=== PATIENT | female | born 1950 | race Caucasian/White ===

== ENCOUNTER 2025-06-12 13:22 | Inpatient (IN) | payer MEDICARE, OTHER, SELFPAY ==
[2025-06-11] VITALS (15 sets, daily range): BP systolic 116–157; BP diastolic 58–96; BMI 29.0
--- NOTE | 2025-06-11 10:10 | EDRN ---
Patient ready to go to CT for stroke alert and the neurologist at the bedside is requesting time to do his full NIH and assessments.
--- NOTE | 2025-06-11 10:27 | ED.CVA ---
History of Present Illness
General
Chief Complaint: CVA/TIA Symptoms
Source: patient
Exam Limitations: none
Time Seen by Provider: 06/11/25 10:04
Nursing documentation reviewed up to this point in time: agreed with
Onset of Stroke Symptoms
Onset of symptoms known: Yes
Date of onset of symptoms: 06/11/25
Time of onset of symptoms: 09:00
Date last time pt seen normal: 06/10/25
History of Present Illness
History of Present Illness:
Patient with history of hypertension, who went to sleep around midnight last night, presents to ED after waking up this morning at 9 AM with left arm and left leg numbness with weakness. Due to weakness, patient reports having fallen multiple times
at home. Denies headache. Denies difficulty with speech. Denies difficulty with swallowing. Denies dizziness. Denies previous history of similar symptoms. Denies recent illness. Denies recent change in medications or diet. Patient does not
take any blood thinning medications.
Past History
Past History
ED Past Medical History: None
ED Past Surgical History: None
Social History
Tobacco: Non-smoker
Alcohol: Occasional
Drug: None
Personal:
Living: with family
Review of Systems
Review of Systems
Allergies reviewed?: Yes
All Other Systems: ROS reviewed and negative except as documented in HPI and ROS
Constitutional: Reports no symptoms
Respiratory: Reports no symptoms
Cardiac: Reports no symptoms
ABD/GI: Reports no symptoms
Musculoskeletal: Reports no symptoms
Skin: Reports no symptoms
Neurological: Reports weakness and numbness
Phy Exam
Physical Exam
Physical Exam:
Physical Exam
General: no apparent distress, not acutely ill. afebrile
Head: nc/at. eomi
Neck: supple. normal range of motion.
Heart: s1/s2 regular rate and rhythm
Lungs: no acute respiratory distress. clear bilaterally
Abdomen: normal bowel sounds. not tender.
Neuro: alert and oriented x 3. no focal neurological deficits. normal speech. no facial droop
Skin: no rash
Psychiatric: well kept. interactive and cooperative
Extremities: no edema. no calf tenderness.
Course
Orders/Labs/Results
Orders:
Orders
06/11/25 10:04
Electrocardiogram (*1) Stat
Reason for Study: Other
Other Reason for Exam: neuro symptoms
Cardiac Monitoring- Treatment ONCE
EKG- Treatment ONCE
06/11/25 10:17
CT BRAIN PERF STROKE ALERT Urgent
Comment:
Reason For Exam: L ataxia, numbness
CT HEAD STROKE ALERT W/o Cont Urgent
Comment:
Reason For Exam: L ataxia, numbness
CT HEAD/NECK ANG STROKE ALERT Urgent
Comment:
Reason For Exam: L ataxia, numbness
06/11/25 10:46
Basic Metabolic Panel Urgent
Complete Blood Count/With Diff Urgent
TSH Reflex To Free T4 Urgent
Comment: ADD ON
06/11/25 12:28
Aspirin 325 mg PO NOW STA
Clopidogrel Bisulfate [Plavix] 300 mg PO NOW STA
06/11/25 13:00
Code Status As Directed
Resuscitation Status: Full Code
Acetaminophen [Tylenol] 650 mg PO Q4HPRN PRN
Neurological Checks As Directed
Frequency: q4h
06/11/25 13:01
Activity As Directed
Activity Level: As Tolerated
Pneumatic Compression Sleeves As Directed
Type: Knee high
Vital Signs As Directed
Frequency: Per unit guidelines
DX Deep Vein Thrombosis Video Routine
06/11/25 13:03
Add On- LAB Urgent
Tests Added?: lft's. mag, phos, tsh with free t4 refeex
NEUROLOGY CONSULT Routine
Consulting Provider: Thierry Asif
Was physician already notified: Yes
Reason for consult: Left lower extremity numbness, fall concern CVA/TIA
06/11/25 13:04
Admit/Transfer Patient As Directed
Co-Sign Provider:
Level of Care: Observation services
Assign to:: Telemetry
Physician / Group: dionisio anand
Diagnosis: lle weakness cramps w/fall concern cva/tia, etoh use
Reason for Telemetry: CVA/TIA
Date to Stop Telemetry: 06/14/25
Time to Stop Telemetry: 11:00
Reason for Hospitalization: lle weakness cramps w/fall concern cva/tia, etoh use
06/11/25 13:08
PRN Pain Medication Management As Directed
May give lesser potent ordered pain med per pt: Yes
preference::
Protocol:: Medication orders for pain may be administered in a
manner that supports deferring to patient preference
when the pt is:
- Requesting an ordered lesser potent pain medication.
Least to most potent pain medications are defined
as: acetaminophen < NSAID < tramadol < opioids
(morphine, oxycodone, hydromorphone).
- Requesting a lesser dose of the same medication IF
ORDERED.
- Requesting a less intrusive route of administration
if both routes are prescribed by the provider (PO <
IV).
06/11/25 14:26
Albuterol [ProAIR HFA INHALER] 2 puff INH R Q4HPRN PRN shortness of breath
Alprazolam [Xanax] 0.125 mg PO HSPRN PRN anxiety
06/11/25 14:26
MSAS SCORE As Directed
MSAS Score 0-4: Repeat MSAS every 2 hours until 0-4 for three consecutive assessments, then every 4 hours x 48
hours.
MSAS Score 5-7: For MILD withdrawl symptoms. Repeat MSAS and RASS every 2 hours
MSAS Score 8-11: For MODERATE withdrawal symptoms. Repeat MSAS and RASS every 1 hour. Consider ICU or IMU
level of care.
MSAS Score > 11: For SEVERE withdrawal symptoms. Repeat MSAS and RASS every 1 hour. Notify provider, consider
ICU level of care.
MSAS Additional Instructions: If no improvement or no decrease in score from severe to moderate within 12
hours, consult psychiatry
MSAS Notify Provider: Notify provider if patient requires more than 10 mg of Lorazepam in eight hour period.
06/11/25 14:51
Lorazepam [Ativan] 0.5 mg PO ONCE PRN
06/11/25 Dinner
Gluten Free
At Your Request: Full Participation
Does patient need a safe tray?: No
06/11/25 16:47
Pt Screening Request from Nicky Routine
06/11/25 18:00
Atorvastatin [Lipitor] 40 mg PO QPM
06/11/25 20:00
Budesonide/Formoterol 160/4.5 [Symbicort 160/4.5 Mcg Inhaler] 2 puff INH R BID
Thiamine Injection 200 mg IV Q12
06/11/25 21:06
Pzjge-Ixlo-Widotnl Urgent
Comment: PHOS
Magnesium Urgent
Phosphorus Urgent
Potassium Urgent
06/12/25 05:30
Cardiovascular Evaluation IN AM
Complete Blood Count/With Diff IN AM
Comprehensive Metabolic Panel IN AM
Ferritin Routine
Comment: ADD ON
Folate Routine
Comment: ADD ON
Hgba1c [Glycohemoglobin (HgbA1c)] IN AM
Vitamin B12 Routine
Comment: ADD ON
06/12/25 07:56
Request for Physical Therapy [NOTICE] Routine
06/12/25 08:00
Aspirin Low Dose EC [Aspir Low (Enteric Coated)] 81 mg PO DAILY
Clopidogrel Bisulfate [Plavix] 75 mg PO DAILY
06/12/25 08:29
Add On- LAB Routine
Tests Added?: folate, ferritin, B12
06/12/25 09:03
Spironolactone [Aldactone] 25 mg PO NOW STA
Ot Eval And Treat Routine
Pt Eval And Treat Routine
Activity Level: Ambulate
Speech Therapy Eval & Treat Routine
06/12/25 09:05
diazePAM [Valium Injection] 5 mg IV ONCE PRN PRN
06/12/25 14:26
MR Brain Without Contrast Routine
Reason For Exam: cva/tia
OK for patient to be off Cardiac Monitoring for MRI: Yes
Recent pill cam endoscopy?: No
Pacemaker/Defibrillator?: No
06/12/25 18:00
Metoprolol Xl [Toprol Xl] 25 mg PO QPM
Spironolactone [Aldactone] 25 mg PO BID@0800,1800
06/14/25 11:00
DC Protocol for Telemetry ONCE
06/14/25 20:00
Thiamine HCl [Vitamin B1] 100 mg PO BID
Abnormal Lab Results
06/11/25 06/11/25 06/12/25
10:46 10:50 05:30
WBC 11.6 H 10^3/uL
(4.8-10.8)
Hgb 16.1 H g/dL
(12.0-16.0)
Hct 48.8 H %
(37.0-47.0)
RDW 15.8 H % 15.9 H %
(11.5-14.5) (11.5-14.5)
Abs Immat Gran (auto) 0.1 H 10^3/uL 0.1 H 10^3/uL
(0-0.05) (0-0.05)
Absolute Neuts (auto) 7.4 H 10^3/uL 7.7 H 10^3/uL
(1.4-6.5) (1.4-6.5)
Absolute Monos (auto) 1.2 H 10^3/uL 1.3 H 10^3/uL
(0.1-0.6) (0.1-0.6)
Immature Gran % 1.1 H % 0.8 H %
(0-0.5) (0-0.5)
Lymphocytes % 16.6 L % 19.1 L %
(20.5-51.1) (20.5-51.1)
Monocytes % 11.0 H % 11.1 H %
(1.7-9.3) (1.7-9.3)
Sodium 130 L mmol/L
(135-145)
Glucose 117 H mg/dl 122 H mg/dl
(70-99) (70-99)
Hemoglobin A1c 6.5 H %
(4.0-5.6)
Folate 2.6 L ng/ml
(2.76-20)
POC Glucose 106 H mg/dl
(70-99)
06/12/25 05:30
06/12/25 05:30
Vital Signs
Initial and Last Documented VS:
Initial Vital Signs
Pulse Ox
90
06/11/25 10:00
Last Documented Vital Signs
Temp Pulse Resp BP Pulse Ox
98.9 F 96 18 139/95 94
06/12/25 23:25 06/12/25 23:25 06/12/25 23:25 06/12/25 23:25 06/12/25 23:58
MDM/Problems Addressed
MDM/Problems Addressed:
Patient evaluated immediately upon arrival by myself along with neurology, Dr. Asif. Decision made to activate stroke alert. CT head/CTP/CT angiogram pending.
Dr. Asif recommends admission to hospitalist service and starting patient on aspirin and Plavix, along with plan to obtain MRI brain as an inpatient. Patient is not a candidate for tenecteplase, as last known well time greater than 10 hours, with
improving symptoms.
*Pulse Oximetry
SaO2: 93
Oxygen Mode of Delivery: Room air
Patient hypoxic: no
*Critical Care Note
Total Time (30-74mins, 75-104mins- exclusive of procedures): Not Applicable
ED Attending Note
-
Portions of this chart may have been created with voice recognition software.� Occasional wrong word or��sound alike� substitutions may have occurred due to the inherent limitations of voice recognition software.
Discharge Plan
Departure
Patient Disposition: Admit
Date of Disposition: 06/11/25
Time of Disposition: 12:29
Presentation/result/management discussed w/ accepting MD/DO: Hospitalist
Discharge Problem:
Acute CVA (cerebrovascular accident)
Interventions
Interventions:
*Risk Screen - Suicide Last Done: 06/11/25 14:22
*General Assessment Last Done: 06/11/25 10:00
*Neglect/Abuse Screening Last Done: 06/11/25 14:22
*ED- Fall Risk Assessment Last Done: 06/11/25 10:00
*ED COVID-19 Vaccine History Last Done: 06/11/25 16:25
*Nursing Disposition Last Done: 06/11/25 14:22
ED- Pulmonary Assessment Last Done: 06/11/25 10:00
ED- Neurological Assessment Last Done: 06/11/25 10:00
ED- Cardiac Assessment Last Done: 06/11/25 10:00
ED Swallowing Screen Last Done: 06/11/25 10:00
Discharge Date and Time
Discharge Date/Time: 06/11/25 14:25
--- NOTE | 2025-06-11 10:31 | CON.NEURO4 ---
Addendum entered and electronically signed by Thierry Asif MD 06/11/25 16:30:
I agree with Nurse Practitioner Jolene Lau's findings, assessment and management plan.
I saw and examined the patient on 06/11/2025 and discussed the case with Nurse Practitioner Jolene Lau.
The patient was not a candidate for TNK administration as she was outside the time window.
Work up in progress including MRI brain without contrast. Continue DAPT.
Original Note:
Consultation - Neurology 4
-
CONSULTING PHYSICIAN: Thierry Asif MD
REFERRING PHYSICIAN: ER/Dr. Sylvester
DICTATED BY: TUNG Parks
DATE/TIME OF REQUEST: 06/11/25
DATE/TIME OF CONSULTATION: 06/11/25
Reason for Consultation: Stroke Alert
History of Present Illness:
This is a 74-year-old right-handed female who has presented to the hospital with report of left-sided paresthesias, ataxia, and weakness. Patient reports that she went to bed in her usual state last night at midnight. She woke up this morning at
0900 and notes that she had difficulty sitting up in bed. Her left side felt weak and numb. She tried to walk and reports her left leg was dragging and she was unable to walk. A stroke alert was activated on arrival. NIHSS is 3 for left arm and leg
ataxia and mild sensation loss. CT head, CTA head/neck, and CT perfusion were obtained on arrival and are unremarkable. She is not a candidate for TNK/IAT due to being outside of the time window and no LVO. She denies any headache, dizziness, vision
changes, and speech/swallowing difficulty. She is not taking any blood thinning medications and denies any history of stroke or similar events in the past.
Past Medical History: HTN, asthma, anxiety, depression, celiac disease, osteoporosis,
Surgical History: Partial hysterectomy, L breast biopsy, appendectomy, b/l cataract removal, b/l lens implant, L wrist repair
Family History: Reviewed and noncontributory.
Social History: Occasional alcohol. Denies tobacco and illicit drug use.
Allergies: Azithromycin, cephalosporins, penicillins, gluten.
Home Medications: See below.
Review of Symptoms:
Patient denies any fever, headache, chest pain, shortness of breath, GI or symptoms.
�Per the HPI.�All systems are reviewed negative except above.
Physical Exam:
The patient is afebrile, abdomen is nondistended, breathing is unlabored, skin is warm and dry, no edema.
NIH Stroke Scale:
I performed the NIH stroke scale on the patient on 06/11/25 at 1000. The patient scored 3 points on the NIH stroke scale assessment, which were assigned as follows: See below.
Neurologic Examination:
The patient is awake, alert and oriented x 3. She is able to follow commands and answer questions appropriately. There is no aphasia or dysarthria. On cranial nerve assessment, pupils are 3 mm bilateral, round and reactive to light and
accommodation. Visual tomlinson are full. Extraocular movements are intact. Facial sensations are intact and bilaterally symmetrical, there is no facial asymmetry. Hearing is intact bilaterally to normal conversation volume. Tongue palate and uvula are
midline. Sternocleidomastoid strengths are full bilaterally. Motor strengths are 5/5 bilateral upper and lower extremities on medical research Prospect scale. There is no drift or involuntary movement noted. Sensations of touch is mildly reduced in
the left arm. There was no extinction noted on double simultaneous stimulation. Coordination is ataxic by finger to nose in the LUE and heel to kirkpatrick in the LLE.
Lab Results: See below.
Neuro Imaging:
1. CT 06/11/25: There are mild changes of cortical atrophy and chronic ischemic disease. ASPECT score: 10.
2. CTA head/neck 06/11/25: There is no evidence for hemodynamically significant stenosis of the common carotid arteries, carotid bulbs, or proximal internal carotid arteries bilaterally. No evidence for significant stenosis of the cervical or
intracranial portions of the internal carotid arteries bilaterally. Normal appearance of the anterior cerebral and middle cerebral arteries. Larger caliber right vertebral artery compared to the left. No significant narrowing of the vertebral
arteries. No significant narrowing of the basilar artery. No significant narrowing of the posterior cerebral arteries.
3. CT Perfusion 06/11/25: CBF 0, Tmax 0.
Differentials for the patient's presentation include:
1. Left-sided ataxia and paresthesias; uncertain etiology, very small brainstem ischemic infarct or TIA possibly producing symptoms. Alternative but less likely etiologies include metabolic abnormality or migraine aura.
Patient has the following risk factors for their symptoms: HTN, age
IV Tenecteplase/IAT candidacy: Not a candidate due to outside of time window, NIHSS <6, and no LVO.
Recommendations:
-Provide a loading dose of aspirin 325mg and clopidogrel 300mg x1 now. Continue DAPT with aspirin 81mg and clopidogrel 75mg daily for 21 days. After 21 days, stop clopidogrel and continue aspirin 81mg daily only, indefinitely.
-MRI brain noncontrast pending.
-Permissive hypertension SBP <220, DBP<120 until 06/12/25 at 0900, then goal normotension.
-LDL goal <70. Lipid panel is pending. Initiate atorvastatin 40mg daily.
-Goal normoglycemia, hbA1c is pending.
-Checking blood work for metabolic abnormalities.
-NIHSS and neurological checks per unit guidelines.
-Provide patient with a stroke education packet.
-PT/OT/ST evaluations.
-DVT prophylaxis.
Discussed patient care with: Dr. Asif, Dr. Sylvester, the patient
Vital Signs and Labs
-
Vital Signs and Labs:
Vital Signs
Pulse Resp BP Pulse Ox
84 17 150/83 93
06/11/25 11:00 06/11/25 11:00 06/11/25 11:00 06/11/25 10:30
Lab Results
06/11/25 10:46
06/11/25 10:46
Sodium 130 mmol/L (135-145) L 06/11/25 10:46
Potassium mmol/L (3.5-5.1) 06/11/25 10:46
BUN 9 mg/dl (7-17) 06/11/25 10:46
Glucose 117 mg/dl (70-99) H 06/11/25 10:46
Calcium 9.1 mg/dl (8.4-10.2) 06/11/25 10:46
Medications
-
Home Medications
�Medication �Instructions �Recorded
hydrocodone 5 mg-acetaminophen 500 1 tab PO Q4HPRN PRN pain #15 tabs 02/20/11
mg tablet
lisinopril 5 mg tablet 5 mg PO DAILY #30 tabs 12/19/18
NIH Stroke Score
Subsequent NIH Scale
Date of Subsequent NIH Scale: 06/11/25
Time of Subsequent NIH Scale: 10:00
NIH Stroke Score
Level of Consciousness: 0 - Alert
LOC Questions: 0-Answers both correctly
LOC Commands: 0-Performs both correctly
Best Horizontal Gaze: 0-Normal
Visual Tomlinson: 0=Normal, no visual loss
Facial Palsy: 0=Normal, symmetrical
Motor - Right Arm: 0=No drift 10 seconds
Motor - Left Arm: 0=No drift 10 seconds
Motor - Right Le-No drift 5 seconds
Motor - Left Le-No drift 5 seconds
Limb Ataxia: 2-Present in two limbs
Sensation: 1-Mild loss
Best Language: 0-No aphasia
Dysarthria: 0-Normal
Extinction and Inattention: 0-No abnormality
NIH Total Score:: 3
Modified Lorenza (mRS) Score
Modified [place] Scale (mRS): Moderately severe disability. Unable to attend to bodily needs/walk.
Score: 4
Alteplase Contraindication
Inclusion and Exclusion criteria reviewed: Yes
[2025-06-11 10:50] LABS: Glucose - Point of Care 106 mg/dl (70-99)
[2025-06-11 11:04] LABS: Hematocrit 45.2 % (37.0-47.0); Hemoglobin 15.1 g/dL (12.0-16.0); Mean Corp Hgb Conc. 33.4 g/dL (33.0-37.0); Mean Corpuscular Volume 91.1 fL (81.0-99.0); Nucleated Red Blood Cells % 0 %; Platelet Count 230 10^3/uL (130-400); Red Cell Dist. Width 15.8 % (11.5-14.5)
[2025-06-11 11:29] LABS: Blood Urea Nitrogen 9 mg/dl (7-17); Calcium 9.1 mg/dl (8.4-10.2); Carbon Dioxide 22 mmol/L (22-30); Chloride 101 mmol/L (98-107); Estimated Creatinine Clearance 58 ml/min; Glucose 117 mg/dl (70-99); Sodium 130 mmol/L (135-145); eGFR > 60.00
--- NOTE | 2025-06-11 12:32 | W.PN.UPDATE ---
Update Note
Progress Note Update
This note serves as an addendum to the H&P by plastics heat welder BRANDIE�
[place]
HPI
74M Remote HX of smoking, daily ETOH use Rt hand dominant HX HTN on BB & Aldactone seen at ER:
- presents to ED after waking up this morning at 9 AM with left arm and left leg numbness with weakness.
- due to weakness, patient reports having fallen multiple times at home.
ROS
Denies headache. Denies difficulty with speech. Denies difficulty with swallowing. Denies dizziness. Denies previous history of similar symptoms. Denies recent illness. Denies recent change in medications or diet. Patient does not take any
blood thinning medications.
PHX
Relevant VS
Pulse Resp BP Pulse Ox
84 17 150/83 93
06/11/25 11:00 06/11/25 11:00 06/11/25 11:00 06/11/25 10:30
PE
Gen: NAD
HEENT: moist OM
Neck: supple
Lungs: CTA
Cor:RRR S1 S2
FINISHING MANAGER: AAO3, nl speech, symmetric face NFND
MS: no edema
Relevant Data
Laboratory Tests
06/11/25
10:46
WBC 10.8
Sodium 130 L
Potassium
Creatinine 0.9
eGFR > 60.00
Glucose 117 H
Calcium 9.1
EKG
SINUS RHYTHM WITH OCCASIONAL PREMATURE VENTRICULAR COMPLEXES
CANNOT RULE OUT ANTERIOR INFARCT (CITED ON OR BEFORE 18-Dec-2018)
ABNORMAL ECG
WHEN COMPARED WITH ECG OF 18-Dec-2018 23:02,
PREMATURE VENTRICULAR COMPLEXES ARE NOW PRESENT
HCT
- There are mild changes of cortical atrophy and chronic ischemic disease
ASPECT score: 10
H & N CTA
- There is no evidence for hemodynamically significant stenosis of the common carotid arteries, carotid bulbs, or proximal internal carotid arteries bilaterally.
- No evidence for significant stenosis of the cervical or intracranial portions of the internal carotid arteries bilaterally.
- Normal appearance of the anterior cerebral and middle cerebral arteries.
- Larger caliber right vertebral artery compared to the left. No significant narrowing of the vertebral arteries. No significant narrowing of the basilar artery. No significant narrowing of the posterior cerebral arteries.
- Percent stenosis is calculated using NASCET criteria.
Brain perfusion CT
- No significant perfusion abnormality is identified on this examination.
NO PRIOR hospitalist admission:
ASSESSMENT & PLAN
Pending Rx reconciliation
Acute LUE/LLE numbness/weakness
Likely CVA
HCT, H & N CTA, Brain perfusion scan are unremarkable
NAD. Evaluated by neurology ()
- starting DAPL loading and maintainable
- start Atorvastatin 40 HS - pending Lipids profile
- check A1 C
- to obtain MRI brain - due to anxiety of close MRI she request IV Ativan
- PT eval
- Neuro consulted at ER
Permissive HTN goal 220/120
Essential HTN
- Hold Aldactone and Metoprolol
Hyponatremia
- due to ETOH use or dehydration ?
- Observe
Daily ETOH use
- 2 galss of whisky and water before dinner
- no prior HX WDS
- no prior ETOH rehab
- MSAS
DVT Px: SCD
Full code
OBS TLM
--- NOTE | 2025-06-11 12:34 | HPS.HSE ---
Family Physician
-
Family Physician: Kenny Loya
Chief Complaint
-
Of left ankle/left calf cramp with fall x 3, left hand numbness
History of Present Illness
74-year-old female who states she went to sleep at midnight last night woke up this morning at 9 AM with left arm left leg numbness associated with weakness. She reports weakness in her leg caused her to fall. She denies headache, blurred vision,
speech difficulty, dysphagia, head injury, chest pain, palpitations, cough, shortness of breath, fever, chills, abdominal pain, nausea, vomiting, diarrhea, urinary symptoms. She has
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
Medical History
Past Medical History
Past Medical History: Reports Other
Additional Past Medical History:
hypertension-due to adrenal gland disorder
asthma
celiac disease
anxiety
depression
Past Surgical History: Reports Other
Additional Past Surgical History:
Hysterectomy 1986
Appendectomy 1959
Lysis of adhesions 1996
Left wrist fracture repair 2005
Social History
Tobacco: Former Smoker (1 pack a day for 8 years quit age 25)
Alcohol: Daily (Whiskey and water approximately 2 ounces of whiskey a night)
Personal:
Living: With Family ( Danny adopted son)
Employment: Retired
Family History
Family History: Not pertinent
Allergies / Home Medications
Allergies reflects when Allergies were last updated in [facility].
Home Medications with original date entered in [facility]
Allergy/Medication List:
Allergies
Allergy/AdvReac Type Severity Reaction Status Date / Time
azithromycin Allergy Tongue Verified 12/18/18 22:59
Swelling
Cephalosporins Allergy Swelling Unverified 12/18/18 22:59
gluten Allergy Unknown Verified 12/18/18 22:59
penicillin V Allergy Swelling Unverified 12/18/18 22:59
Penicillins Allergy Swelling Unverified 12/18/18 22:59
Home Medications
albuterol sulfate 90 mcg/actuation aerosol inhaler (Ventolin HFA) 2 puff inhalation Q4HPRN PRN shortness of breath 06/11/25
alprazolam 0.25 mg tablet 0.125 mg PO HSPRN PRN anxiety 06/11/25
budesonide-formoterol HFA 160 mcg-4.5 mcg/actuation aerosol inhaler (Symbicort) 2 puff inhalation BID Lung/Breathing Issues 06/11/25
metoprolol succinate 25 mg tablet,extended release 24 hr 25 mg PO QPM Blood Pressure 06/11/25
spironolactone 25 mg tablet 25 mg PO BID Blood Pressure 06/11/25
Review of Systems
-
History Source: Patient and Family ( Danny at bedside)
A 12 point ROS was completed and negative except as noted: Yes
Constitutional: Denies Fever or Chills
EENT: Denies Sore Throat or Runny Nose
Respiratory: Denies Cough or Trouble Breathing
Cardiac: Denies Chest Pain, Diaphoresis, Palpitations or Syncope
Abdomen/GI: Denies Abdominal Pain, Nausea, Vomiting, Diarrhea, Constipated, Bloody Stools or Black Stools
: Denies Dysuria, Frequency, Flank Pain, Incontinence, Difficulty Voiding or Urgency
Musculoskeletal: Denies Joint Pain or Edema
Skin: Denies Itching or Rash
Neurological: Reports Weakness (Left leg ankle and calf during muscle cramp leading to fall x 3) and Numbness (Left hand); Denies Dizzy or Headache
Endocrine: Reports No Symptoms
Hematologic/Lymphatic: Reports No Symptoms
Psych: Reports Calm
Physical Exam
Vital Signs
Vital Signs
Pulse Resp BP Pulse Ox
84 17 150/83 93
06/11/25 11:00 06/11/25 11:00 06/11/25 11:00 06/11/25 10:30
Physical Exam
General: No Apparent Distress, Comfortable and Conversant; No Pain, Fever or Chills
HEENT: NormoCephalic, Anicteric, Moist mucous membranes, Atraumatic, PERRLA, [place] Conjunctivae, No Ptosis, Neck Nontender and Other (Tongue midline speech clear)
Respiratory: Clear; No Wheezes, Rales or Rhonchi
Cardiac: S1/S2 and Regular Rhythm; No Murmur, Rub, Gallop or Peripheral Edema
Breast: Deferred by me
GI: Soft, Non Tender, Non Distended, Normal Bowel Sounds and No Hepatosplenomegaly
Rectal: Deferred by Provider
Musculoskeletal: No Clubbing, No Cyanosis and No Edema
Skin: Warm, Dry and Rash
Neuro: AO x 3, No Motor Deficits, Nonfocal/grossly intact, Cranial Nerves Intact, No Sensory Deficits and Other (5 out of 5 strength upper and lower extremities in bed); No Slurred Speech, Facial Droop or Tremors
Psych: Other (Tearful with slight anxiety due to concern for TIA/CVA)
Laboratory Results
-
06/11/25 10:46
06/11/25 10:46
Laboratory Results
Total Bilirubin Cancelled 06/11/25 10:46
AST Cancelled 06/11/25 10:46
ALT Cancelled 06/11/25 10:46
Alkaline Phosphatase Cancelled 06/11/25 10:46
Data Reviewed
-
CT Scan: Report Reviewed by me
Lab Data: Labs Reviewed by me
Impression/Plan
-
Impression/plan:
Observation telemetry
#LUE/LLE leg cramp numbness with Fall concern CVA/TIA
- Consult neurology
- Neurochecks every 4 hours
- Check lipid profile, HgbA1c
- Aspirin, Plavix
- MRI brain
- PT /OT/case management
CTA head and neck:no evidence for hemodynamically significant stenosis of the common carotid arteries, carotid bulbs, or proximal internal carotid arteries bilaterally.
No evidence for significant stenosis of the cervical or intracranial portions of the internal carotid arteries bilaterally.
Normal appearance of the anterior cerebral and middle cerebral arteries.
Larger caliber right vertebral artery compared to the left. No significant narrowing of the vertebral arteries. No significant narrowing of the basilar artery.
No significant narrowing of the posterior cerebral arteries.
EKG: Sinus rhythm with occasional PACs 83 bpm, QTc 441 MS
#Alcohol use
Patient drinks 2 whiskey and water approximately 2 ounces daily drink yesterday 06/10/2025
Will check magnesium level given leg cramps causing patient to fall
#Anxiety/depression
-Continue Xanax 0.125 mg at bedtime as needed last dose was yesterday 06/10/2025
#HTN�benign due to adrenal gland disorder
BP 150/83
Hold spironolactone 25 mg twice daily, metoprolol XL 25 mg at bedtime
#Asthma moderate persistent�no acute exacerbation
Continue Symbicort twice daily, albuterol rescue inhaler as needed
#Celiac disease
- Gluten-free diet
DVT prophylaxis
SCDs
Full code
[2025-06-11] MEDS: ASPIRIN 325 MG PO (13:11)
[2025-06-11] MEDS: PLAVIX 300 MG PO (13:11)
--- NOTE | 2025-06-11 13:47 | CM ---
Addendum entered by Alexandra Das 06/11/25 15:17:
OBS/WYATT form provided to patient and verbally reviewed. Patient indicated that she understood that she did have a stroke, but is aware that physician may review and change status pending medical treatment/status. Patient requested nursing update
her diet orders as she was hungry and CM updated nursing re above.
Original Note:
Patient seen at bedside in ED with patient . Patient stated that she lives in a one story home with her who has had a brain injury and she cares for him. Patient son has recently had a transplant. Patient is caregiver for both
and son as needed. Per patient her PCP is Dr. Loya and she uses the [facility] on [address], [place]. Patient stated that she is hoping to be able to walk and that she is anxious about remaining work up. Patient OBS/WYATT and CM will provide OBS/WYATT
form to review. Patient plan is home with her family. CM will continue to follow for discharge planning needs.
Plan; home with VN vs SNF pending medical treatment plan
[2025-06-11] MEDS: LIPITOR 40 MG PO (17:40)
[2025-06-11] MEDS: SYMBICORT 160/4.5 MCG INHALER 2 PUFF INH (20:12)
[2025-06-11] MEDS: THIAMINE INJECTION 200 MG IV (21:08)
[2025-06-11 21:41] LABS: ALT (SGPT) 20 U/L (0-35); AST (SGOT) 18 U/L (14-36); Albumin 4.2 g/dl (3.5-5.0); Alkaline Phosphatase 104 U/L (38-126); Magnesium 1.7 mg/dl (1.6-2.3); Potassium 4.1 mmol/L (3.5-5.1); Total Protein 7.3 g/dl (6.3-8.2)
[2025-06-12 03:00] VITALS: BP 146/87
[2025-06-12 05:58] LABS: Hematocrit 48.8 % (37.0-47.0); Hemoglobin 16.1 g/dL (12.0-16.0); Mean Corp Hgb Conc. 33.0 g/dL (33.0-37.0); Mean Corpuscular Volume 91.9 fL (81.0-99.0); Nucleated Red Blood Cells % 0 %; Platelet Count 260 10^3/uL (130-400); Red Cell Dist. Width 15.9 % (11.5-14.5)
[2025-06-12 06:00] VITALS: BMI 29.3
[2025-06-12 06:22] LABS: ALT (SGPT) 18 U/L (0-35); AST (SGOT) 17 U/L (14-36); Albumin 3.9 g/dl (3.5-5.0); Alkaline Phosphatase 97 U/L (38-126); Blood Urea Nitrogen 9 mg/dl (7-17); Calcium 9.8 mg/dl (8.4-10.2); Carbon Dioxide 23 mmol/L (22-30); Chloride 106 mmol/L (98-107); Estimated Creatinine Clearance 52 ml/min; Glucose 122 mg/dl (70-99); HDL Cholesterol 59 mg/dl; LDL Cholesterol, Calculated 107 mg/dl; Potassium 4.1 mmol/L (3.5-5.1); Sodium 137 mmol/L (135-145); Total Protein 6.9 g/dl (6.3-8.2); Very Low Density Lipoprotein 15 mg/dl (0-30); eGFR 59.12
[2025-06-12] MEDS: SYMBICORT 160/4.5 MCG INHALER 2 PUFF INH ×2 (07:25→20:19)
[2025-06-12 07:37] VITALS: BP 138/79
[2025-06-12 09:12] LABS: Glycohemoglobin (HgbA1c) 6.5 % (4.0-5.6)
[2025-06-12] MEDS: PLAVIX 75 MG PO (09:12)
[2025-06-12] MEDS: ASPIR LOW (ENTERIC COATED) 81 MG PO (09:12)
[2025-06-12] MEDS: THIAMINE INJECTION 200 MG IV ×2 (09:12→20:33)
[2025-06-12] MEDS: ALDACTONE 25 MG PO ×2 (09:15→17:05)
[2025-06-12] MEDS: VALIUM INJECTION IV (09:15)
--- NOTE | 2025-06-12 10:01 | W.PN.HOSP.TC ---
Today's Communication/Plan
-
f/w neurology recommendations
Assessment / Plan
Assessment / Plan
Physical Exam
General: No Apparent Distress, Comfortable and Conversant; No Pain, Fever or Chills
HEENT: Normocephalic, Anicteric, Moist mucous membranes, Atraumatic,
Respiratory: Clear; No Wheezes, Rales or Rhonchi
Cardiac: S1/S2
GI: Soft, Non Tender, Non Distended, Normal Bowel Sounds
Musculoskeletal: No Clubbing, No Cyanosis and No Edema
Skin: Warm, Dry and Rash
Neuro: AO x 3, No Motor Deficits, Nonfocal/grossly intact, No Slurred Speech, Facial Droop or Tremors
Psych:calm
#LUE/LLE leg cramp numbness with Fall concern CVA/TIA
She reports improvement
- Neurochecks unchanged
- Lipid panel showed total cholesterol 181, LDL 107, HDL 59. HgbA1c 6.5
Normal TSH. Vitamin B12 and folate levels are pending
-Continue dual antiplatelet therapy for now with aspirin, Plavix
- MRI brain is to be done, d/w pt, will do IV Diazepam,
- PT /OT/Speech/ case management
CTA head and neck:no evidence for hemodynamically significant stenosis of the common carotid arteries, carotid bulbs, or proximal internal carotid arteries bilaterally.
No evidence for significant stenosis of the cervical or intracranial portions of the internal carotid arteries bilaterally.
Normal appearance of the anterior cerebral and middle cerebral arteries.
Larger caliber right vertebral artery compared to the left. No significant narrowing of the vertebral arteries. No significant narrowing of the basilar artery.
No significant narrowing of the posterior cerebral arteries.
EKG: Sinus rhythm with occasional PACs 83 bpm, QTc 441 MS
#Alcohol use
Patient drinks 2 whiskey and water approximately 2 ounces daily drink
No signs of DT
counseled to avoid regular alcohol intake, she verbalized understanding
Lucid and pleasant
No tremor.
#Anxiety/depression
-Continue Xanax 0.125 mg at bedtime as needed last dose was yesterday 06/10/2025
#HTN�benign
Resume spironolactone 25 mg twice daily, metoprolol XL 25 mg at bedtime after permissive hypertension.
#Asthma moderate persistent�no wheezes.
will do chest x ray
Continue Symbicort twice daily, albuterol rescue inhaler as needed
#Celiac disease
- Gluten-free diet
DVT prophylaxis
SCDs
Full code
Total time spent to see the patient, examine the patient, review data and lab result, discuss treatment plan with patient, nursing staff around 55 minutes
Anticipated Discharge: Within 24 hours
Subjective/Interval History
-
Date of Service: June 12, 2025
Objective Data
-
Labs:
Laboratory Results
06/12/25
05:30
WBC 11.6 H
Hgb 16.1 H
Hct 48.8 H
Plt Count 260
Sodium 137
Potassium 4.1
Chloride 106
Carbon Dioxide 23
BUN 9
Creatinine 1.0
Glucose 122 H
Calcium 9.8
Total Bilirubin 1.1
AST 17
ALT 18
Alkaline Phosphatase 97
Vital Signs:
Vital Signs
Temp Pulse Resp BP Pulse Ox
98.2 F 93 16 138/79 93
06/12/25 07:37 06/12/25 09:15 06/12/25 07:37 06/12/25 09:15 06/12/25 07:37
I&O
06/11/25 06/12/25 06/13/25
06:59 06:59 06:59
Intake Total 960 / 960
Output Total 200 / 200
Balance 760 / 760
--- NOTE | 2025-06-12 10:53 | PTOTSP ---
Speech Therapy Evaluation:
Pt with acute risk factors for dysphagia including concern for acute CVA, however oral and pharyngeal phase of swallowing appeared functional at bedside. No overt s/sx of aspiration across trials. Pt passed 3oz swallow screen, on room air, afebrile,
and without dysphagia hx. No chest imaging completed thus far.
Recommend:
1. Regular solids and thin liquids
2. Medications as tolerated
3. General aspiration precautions
4. PORTFOLIO ADMINISTRATOR to follow pending results of MRI
[2025-06-12 10:59] VITALS: BP 142/93
[2025-06-12] MEDS: VALIUM INJECTION 5 MG IV (11:26)
[2025-06-12 13:43] LABS: Ferritin 97.4 ng/ml (11.1-264.0)
--- NOTE | 2025-06-12 13:50 | W.PN.NEURO.1 ---
Addendum entered and electronically signed by Thierry Asif MD 06/12/25 15:59:
The patient feels much stronger today in the left upper and lower extremities but she still has mild ataxia in the left upper and lower extremities. The strength in the right upper and lower extremities is grossly 5/5 and the patient does not have
any speech difficulty.
MRI of the brain showed a focal area of acute to subacute infarction involving the posterior aspect of the right lentiform nucleus, with contiguous extension superiorly and posteriorly to involve the reilly radiata of the right parietal lobe. This
region of acute to subacute infarction may also involve the posterior limb of the right internal capsule.
The patient had an acute cerebrovascular accident likely secondary to small vessel disease.
The plan is to continue with aspirin and Plavix for 21 days and after 21 days the plan is to stop Plavix and continue with aspirin indefinitely. She will also be on atorvastatin 40 mg daily
I had a detailed discussion with the patient regarding the assessment and the management plan and the patient verbalized understanding of our discussion.
I have also seen the patient along with nurse practitioner Jolene Lau and also I discussed the assessment and the management plan with her.
Original Note:
Today's Communication / Plan
-
.
Neuro Assessment/Plan
Assessment
This is a 74-year-old right-handed female who presented to [facility] on 06/11/25 with report of left-sided paresthesias, ataxia, and weakness upon waking at 0900, last known well time was midnight the night before.
-CT 06/11/25: There are mild changes of cortical atrophy and chronic ischemic disease. ASPECT score: 10.
-CTA head/neck 06/11/25: There is no evidence for hemodynamically significant stenosis of the common carotid arteries, carotid bulbs, or proximal internal carotid arteries bilaterally. No evidence for significant stenosis of the cervical or
intracranial portions of the internal carotid arteries bilaterally. Normal appearance of the anterior cerebral and middle cerebral arteries. Larger caliber right vertebral artery compared to the left. No significant narrowing of the vertebral
arteries. No significant narrowing of the basilar artery. No significant narrowing of the posterior cerebral arteries.
-CT Perfusion 06/11/25: CBF 0, Tmax 0.
-MRI brain 06/12/25: Focal area of acute to subacute infarction involving the posterior aspect of the right lentiform nucleus, with contiguous extension superiorly and posteriorly to involve the reilly radiata of the right parietal lobe. This region
of acute to subacute infarction may also involve the posterior limb of the right internal capsule. Mild to moderate diffuse atrophy in this 74-year-old. Mild to moderate T2 and FLAIR white matter hyperintensities, commonly seen with aging and
usually attributed to small vessel ischemic disease.
I. Acute/subacute right lentiform nucleus ischemic stroke as demonstrated on MRI brain imaging; etiology is likely small vessel disease.
II. HTN
III. New diagnosis DM, hbA1c is 6.5.
III. HLD
IV. Low vitamin B12 level.
Plan
-Continue DAPT with aspirin 81mg and clopidogrel 75mg daily for 21 days. After 21 days, stop clopidogrel and continue aspirin 81mg daily only, indefinitely.
-Goal normotension.
-LDL goal <70. LDL is 107. Continue newly initiate atorvastatin 40mg daily.
-Goal normoglycemia, hbA1c is 6.5. mink rancher consult placed.
-NIHSS and neurological checks per unit guidelines.
-Provide patient with a stroke education packet.
-Vitamin B12 level is low at 300, initiate cyanocobalamin 1000mcg PO daily. Goal >400.
-PT/OT/ST evaluations.
-DVT prophylaxis.
-Follow-up with Neurology as an outpatient.
Subjective/Objective
Subjective Data
Date of Service: June 12, 2025
No acute events overnight. Patient reports that her left-sided symptoms have improved but are still present.
Objective Data
Vital Signs
Temp Pulse Resp BP Pulse Ox
98.2 F 96 16 142/93 93
06/12/25 10:59 06/12/25 10:59 06/12/25 10:59 10/02/25 10:59 06/12/25 10:59
Lab Results
06/12/25 05:30
06/12/25 05:30
Sodium 137 mmol/L (135-145) 06/12/25 05:30
Potassium 4.1 mmol/L (3.5-5.1) 06/12/25 05:30
BUN 9 mg/dl (7-17) 06/12/25 05:30
Glucose 122 mg/dl (70-99) H 06/12/25 05:30
Calcium 9.8 mg/dl (8.4-10.2) 06/12/25 05:30
Phosphorus 3.8 mg/dl (2.5-4.5) 06/11/25 21:06
LDL Cholesterol, Calc 107 mg/dl 06/12/25 05:30
Patient Allergies
azithromycin Allergy (Verified 12/18/18 22:59)
Tongue Swelling
Cephalosporins Allergy (Unverified 12/18/18 22:59)
Swelling
gluten Allergy (Verified 12/18/18 22:59)
Unknown
penicillin V Allergy (Unverified 12/18/18 22:59)
Swelling
Penicillins Allergy (Unverified 12/18/18 22:59)
Swelling
LDL Level: >70, statin ordered
Review of Systems
-
History Source: Patient
EENT: Negative Blurry Vision, Decreased Vision or Swallowing Difficulty
Neuro: Weakness and Ataxia; Negative Dizzy, Headache, Tremors or Speech Problem
Physical Exam
-
General: No Apparent Distress
Eyes: No Ptosis and PERRLA
HEENT: Normocephalic and Atraumatic
Neck: Full Range of Motion
Respiratory: No Dyspnea
GI: Non-distended
Extremities: No Clubbing, No Cyanosis and No Edema
Extended Neurological Exam
Mood & Affect: Mood Unremarkable and Affect Unremarkable
Attention Span & Concentration: Awake, Alert, Interactive and No Difficulty with 2 Step Request
Memory: Unremarkable and Able to Recall
Tremor: Hand Tremor Absent and Head Tremor Absent
Involuntary Movement: None
Speech: Quality Unremarkable, Quantity Unremarkable and Rate of Production Unremarkable
Cranial Nerve II: Left Eye: Pupillary Reactivity Unremarkable, Pupillary Size Unremarkable and Visual [place] Intact
Cranial Nerve II: Right Eye: Pupillary Reactivity Unremarkable, Pupillary Size Unremarkable and Visual [place] Intact
Cranial Nerves III, IV, : Extraocular Movement: Extraocular Movement Full in all Directions
Cranial Nerve V: Facial Sensation: Intact to Light Touch
Cranial Nerve VII: Facial Symmetry: Normal Facial Symmetry
Cranial Nerve VIII: Hearing: Unremarkable Hearing to Normal Conversational Volume
Cranial Nerves IX, X: Palate Movement: Palate Elevation Symmetric
Cranial Nerve XII: Tongue Protusion: Midline
Muscle Strength, Overall: Reduced on Left (LUE 5-/5, LLE 5-/5)
Pronator Drift: No Drift in Upper Extremities and No Drift in Lower Extremities
Touch Sensation: Double Simultaneous Stimulation Unremarkable
Coordination: Negative [id number] Testing Unremarkable (LUE mild ataxia)
Modified Elaine Score (MRS)
-
Modified Lorenza Scale (mRS): Moderate disability. Requires some help, able to walk unassisted.
Score: 3
Data Reviewed
-
MRI Head: Report Reviewed and Image Reviewed
Labs: Report Reviewed
Lipid Profile: Report Reviewed
HgbA1C: Report Reviewed
Reviewed with: Physician and Patient
Medications
-
Active Medications
Generic Name Dose Route Start Last Admin
Trade Name Freq PRN Reason Stop Dose Admin
Acetaminophen 650 mg 06/11/25 13:00
Acetaminophen 325 Mg Tablet PO 07/09/25 12:59
Q4HPRN PRN
mild pain/ZHENG/temp> 100.4F
Albuterol 2 puff 06/11/25 14:26
Albuterol Hfa [90 Mcg/Dose] Inhaler INH
R Q4HPRN PRN
shortness of breath
Protocol
Alprazolam 0.125 mg 06/11/25 14:26
Alprazolam 0.25 Mg Tablet PO 07/09/25 14:25
HSPRN PRN
anxiety
Aspirin 81 mg 06/12/25 08:00 06/12/25 09:12
Aspirin 81 Mg (Enteric Coated) Tablet PO 07/10/25 07:59 81 mg
DAILY SHEYLA Administration
Atorvastatin Calcium 40 mg 06/11/25 18:00 06/11/25 17:40
Atorvastatin (Lipitor) 40 Mg Tablet PO 07/09/25 17:59 40 mg
QPM SHEYLA Administration
Budesonide/Formoterol Fumarate 2 puff 06/11/25 20:00 06/12/25 07:25
Symbicort Inhaler 160/4.5 INH 07/09/25 19:59 2 puff
R BID SHEYLA Administration
Protocol
Clopidogrel Bisulfate 75 mg 06/12/25 08:00 06/12/25 09:12
Clopidogrel 75 Mg Tablet PO 07/10/25 07:59 75 mg
DAILY SHEYLA Administration
Diazepam 5 mg 06/12/25 09:05 06/12/25 11:26
Diazepam 10 Mg/2 Ml Inj IV 07/10/25 17:00 5 mg
ONCE PRN PRN Administration
MRI test
Metoprolol Succinate 25 mg 06/12/25 18:00
Metoprolol 25 Mg Extended Release Tablet PO 07/10/25 17:59
QPM SHEYLA
Spironolactone 25 mg 06/12/25 18:00
Spironolactone 25 Mg Tablet PO 07/10/25 17:59
BID@0800,1800 SHEYLA
Thiamine HCl 200 mg 06/11/25 20:00 06/12/25 09:12
Thiamine (100 Mg/Ml) 2 Ml Vial IV 06/14/25 08:01 200 mg
Q12 SHEYLA Administration
Thiamine HCl 100 mg 06/14/25 20:00
Thiamine 100 Mg Tablet PO 07/12/25 19:59
BID SHEYLA
Home Medications
�Medication �Instructions �Recorded
albuterol sulfate 90 mcg/actuation 2 puff inhalation Q4HPRN PRN 06/11/25
aerosol inhaler (Ventolin HFA) shortness of breath
alprazolam 0.25 mg tablet 0.125 mg PO HSPRN PRN anxiety 06/11/25
budesonide-formoterol HFA 160 2 puff inhalation BID 06/11/25
mcg-4.5 mcg/actuation aerosol Lung/Breathing Issues
inhaler (Symbicort)
metoprolol succinate 25 mg 25 mg PO QPM Blood Pressure 06/11/25
tablet,extended release 24 hr
spironolactone 25 mg tablet 25 mg PO BID Blood Pressure 06/11/25
[2025-06-12 14:15] LABS: Folate 2.6 ng/ml (2.76-20); Vitamin B12 300 pg/ml (239-931)
[2025-06-12 15:34] VITALS: BP 151/91
[2025-06-12 15:43] VITALS: BP 153/99; PULSE 101; O2SAT 92
[2025-06-12] MEDS: VITAMIN B-12 1000 MCG PO (17:03)
[2025-06-12] MEDS: TOPROL XL 25 MG PO (17:03)
[2025-06-12] MEDS: LIPITOR 40 MG PO (17:03)
--- NOTE | 2025-06-12 20:49 | VATNOTE ---
called to assess painful left ac IV site. Noted phlebitis; heat applied. Pt could barely bend arm. Pt stated pain level was an '8' but did not want any pain medication. Informed pt & MD STACEY should see site in AM. VAT to follow.
[2025-06-12 23:25] VITALS: BP 139/95
[2025-06-13 03:55] VITALS: BP 135/82
[2025-06-13] MEDS: SYMBICORT 160/4.5 MCG INHALER 2 PUFF INH ×2 (07:49→19:33)
[2025-06-13 08:10] VITALS: BP 146/88
[2025-06-13] MEDS: ASPIR LOW (ENTERIC COATED) 81 MG PO (08:13)
[2025-06-13] MEDS: VITAMIN B-12 1000 MCG PO (08:13)
[2025-06-13] MEDS: PLAVIX 75 MG PO (08:14)
[2025-06-13] MEDS: ALDACTONE 25 MG PO ×2 (08:14→18:22)
[2025-06-13] MEDS: THIAMINE INJECTION 200 MG IV ×2 (08:15→20:20)
--- NOTE | 2025-06-13 09:23 | W.PN.HOSP.TC ---
Today's Communication/Plan
-
Consulted DR Rod , f/w neurology recommendations
c/w aspirin , Plavix, Lipitor
CXR, f/w pulmonary recommendations
Assessment / Plan
Assessment / Plan
Physical Exam
General: No Apparent Distress, Comfortable and Conversant; No Pain, Fever or Chills
HEENT: Normocephalic, Anicteric, Moist mucous membranes, Atraumatic,
Respiratory: Clear; No Wheezes, Rales or Rhonchi
Cardiac: S1/S2
GI: Soft, Non Tender, Non Distended, Normal Bowel Sounds
Musculoskeletal: No Clubbing, No Cyanosis and No Edema
Skin: Warm, Dry and Rash
Neuro: AO x 3, No Motor Deficits, Nonfocal/grossly intact. Gait: unsteady at times. No Slurred Speech, Facial Droop or Tremors
Psych:calm
#Acute to subacute infarction involving the posterior aspect of the right lentiform nucleus, with contiguous extension superiorly and posteriorly to involve the reilly radiata of the right parietal lobe. This region of acute to subacute infarction
may also involve the posterior limb of the right internal capsule. LUE/LLE leg cramp numbness with Fall concern CVA/TIA
She reports improvement but gait is still not normal, mild left weakness
- Neurochecks unchanged
- Lipid panel showed total cholesterol 181, LDL 107, HDL 59. HgbA1c 6.5
Normal TSH. Vitamin B12 and folate levels are pending
-Continue dual antiplatelet therapy for now with aspirin, Plavix
consulted Dr Rod
- PT /OT/Speech/ case management
#Alcohol use
Patient drinks 2 whiskey and water approximately 2 ounces daily drink
No signs of DT
counseled to avoid regular alcohol intake, she verbalized understanding
Lucid and pleasant
No tremor.
#Anxiety/depression
-Continue Xanax 0.125 mg at bedtime as needed last dose was yesterday 06/10/2025
#HTN�benign
Resumed spironolactone 25 mg twice daily, metoprolol XL 25 mg at bedtime after permissive hypertension.
#Asthma moderate persistent�no wheezes.
will do chest x ray
consult pulmonary, elevated pulmonary artery pressure
Continue Symbicort twice daily, albuterol rescue inhaler as needed
#Celiac disease
- Gluten-free diet
DVT prophylaxis
SCDs
Full code
Total time spent to see the patient, examine the patient, review data and lab result, discuss treatment plan with patient, nursing staff around 55 minutes
Anticipated Discharge: 24 - 48 hours
Subjective/Interval History
-
Date of Service: June 13, 2025
No new focal deficit
Still having trouble walking
NO chest pain or sob
Objective Data
-
Vital Signs:
Vital Signs
Temp Pulse Resp BP Pulse Ox
98.2 F 92 16 146/88 92
06/13/25 08:10 06/13/25 08:14 06/13/25 08:10 06/13/25 08:14 06/13/25 08:10
I&O
06/12/25 06/13/25 06/14/25
06:59 06:59 06:59
Intake Total 960 / 960 600 / 600
Output Total 200 / 200
Balance 760 / 760 600 / 600
--- NOTE | 2025-06-13 10:24 | CON.PUL ---
Consultation
Consultation Request
Date/Time Consultation Requested: 06/13/2025
Date/Time Consultation Performed: 06/13/2025
Requesting Provider: Dr. Shankar
Performing Provider: Dr. Maynor Keyes
Reason for Consultation: Asthma/pulmonary hypertension
Medical History
-
History of Present Illness:
74-year-old woman with past medical history hypertension, asthma, celiac disease, anxiety and depression who came to the hospital complaining of left arm and left leg numbness/weakness.
She sustained a fall due to the weakness that night prior admission.
Denied any other symptoms.
Patient does have history of asthma-found to be mildly hypoxemic.
Echocardiogram on 06/12/2025: Showed pulmonary hypertension. RV was normal.
We were consulted on 06/13/2025 for evaluation of asthma and pulmonary hypertension.
-
Patient denies any cough, wheezing or phlegm production
Reports diagnosis of asthma a little bit longer than a year ago-she moved from [place] around that time.
She has cats at dogs at home
She states the Symbicort usually helps her symptoms significantly.
She states that she was tested for allergies to cats and dogs and she was not allergic
She has chronic rhinitis
Denies GERD
-
She snores
She has insomnia
Sister is concerned about obstructive sleep apnea.
Past Medical History
Past Medical History: Other (See assessment and plan)
Family History
Family History: Reviewed & Not Pertinent
Allergies / Home Medications
Allergies
Allergy/AdvReac Type Severity Reaction Status Date / Time
azithromycin Allergy Tongue Verified 12/18/18 22:59
Swelling
Cephalosporins Allergy Swelling Unverified 12/18/18 22:59
gluten Allergy Unknown Verified 12/18/18 22:59
penicillin V Allergy Swelling Unverified 12/18/18 22:59
Penicillins Allergy Swelling Unverified 12/18/18 22:59
Home Medications
�Medication �Instructions �Recorded �Confirmed �Last Taken �Type
albuterol sulfate 90 mcg/actuation 2 puff inhalation Q4HPRN PRN 06/11/25 06/11/25 Unknown History
aerosol inhaler (Ventolin HFA) shortness of breath
alprazolam 0.25 mg tablet 0.125 mg PO HSPRN PRN anxiety 06/11/25 06/11/25 06/10/25 History
budesonide-formoterol HFA 160 2 puff inhalation BID 06/11/25 06/11/25 06/11/25 History
mcg-4.5 mcg/actuation aerosol Lung/Breathing Issues
inhaler (Symbicort)
metoprolol succinate 25 mg 25 mg PO QPM Blood Pressure 06/11/25 06/11/25 06/10/25 History
tablet,extended release 24 hr
spironolactone 25 mg tablet 25 mg PO BID Blood Pressure 06/11/25 06/11/25 06/10/25 History
Review of Systems
Vitals / Labs / Diagnostic Testing
Vital Signs
Temp Pulse Resp BP Pulse Ox
98.2 F 92 16 146/88 92
06/13/25 08:10 06/13/25 08:14 06/13/25 08:10 06/13/25 08:14 06/13/25 08:10
Lab Data
06/12/25 05:30
06/12/25 05:30
Diagnostic Testing:
Physical Exam
-
HEENT: Normocephalic
Cardiovascular: S1/S2
Respiratory: Clear and Non-Labored Respirations
GI: Soft and Non Distended
Neurology: Awake, Alert and Other (Left hemiparesis)
Skin: Warm
General: Comfortable
Assessment
-
74-year-old woman with history of hypertension, prediabetes, obesity, asthma. Admitted with left-sided hemiparesis. Found to have acute stroke. During evaluation initially she was found to be mildly hypoxemic. On echocardiogram she was
discovered to have pulmonary hypertension. She has history of asthma. We were consulted for evaluation.
Pulmonary hypertension: Unclear etiology.
Echocardiogram with PA pressure 56 mmHg 06/12/2024.
Normal LVEF/normal RV/normal RA.
Mild persistent asthma: Controlled.
Mild respiratory sufficiency: Possibly hypoventilation due to immobility/obesity.
-
Acute CVA: Small vessel disease status post fall: Left hemiparesis.
MRI 06/12/2025:focal area of acute to subacute infarction involving the posterior aspect of the right lentiform nucleus, with contiguous extension superiorly and posteriorly to involve the reilly radiata of the right parietal lobe. This region
of acute to subacute infarction may also involve the posterior limb of the right internal capsule.
Mild to moderate diffuse atrophy in this 74-year-old.
Conditions present prior admission:
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
Prediabetes
Celiac disease
Asthma-mild intermittent. On Symbicort
Assessment and plan:
-
In regards to asthma: Patient appears to be stable without exacerbation.
She states that she was diagnosed with asthma in [place]. She moved to this area about a year ago.
Continue Symbicort for now-patient states that this medication usually works well.
Albuterol HFA as needed
No peripheral eosinophilia
Patient has dogs and cats at home. She states she is not allergic to them.
She does report chronic rhinitis.
Recommend outpatient follow-up for evaluation and asthma optimization.
-
Pulmonary hypertension on echocardiogram 06/12/2025: With normal right ventricular size and right atrium size may be overestimated.
In 2022 pulmonary pressures were 36, now are 56.
So far no other secondary pathology to explain pulmonary hypertension, normal LFTs, normal renal function, normal TSH. No significant anemia.
Interestingly hemoglobin is 16 on this admission
Brings a suspicion for sleep disordered breathing which will need to be evaluated in the outpatient setting.
-
Does not appear volume overloaded.
Obtain portable chest x-ray-I did review the records that there is no recent imaging to review.
-
Initially with borderline hypoxemia- Suspect hypoventilation from immobility and obesity.
Clear lung exam
Denies respiratory symptoms
Incentive spirometry will be ordered
Clinical picture does not suggest thromboembolic disease either. No indication for further evaluation per
-
Recommend in the outpatient setting obtaining full pulmonary function testing, 6-minute walk testing.
Recommend home sleep study as well. Discussed with patient relationship between obstructive sleep apnea, hypertension and risk of cardiovascular disease. Sister who is a nurse was at the bedside. She agreed.
Pulmonary pressure will need to be followed-information will be left in the chart.
If symptomatic and pulmonary pressures persist and eventual right heart catheterization, this could be discussed in the outpatient setting.
-
Will follow.
-
Discharge planning ongoing-patient looking to go to rehab

Data reviewed:
Echocardiogram: 06/12/2025
1. Ejection fraction is 60-65% by visual assessment.
2. Right ventricular size and systolic function are within normal limits.
3. Mild tricuspid regurgitation. Estimated pulmonary artery pressure of 56 mmHg assuming a right atrial pressure of 3 mmHg.
4. There are no prior studies available for comparison.
-
Outpatient echocardiogram report: 10/18/2022.
Normal right atrium
Normal right ventricular size and function
Normal LVEF
Mild LVH
Estimated pulmonary pressure at that time 36 mmHg.
-
--- NOTE | 2025-06-13 10:27 | PTOTSP ---
Speech Therapy Evaluation:
Given R sided CVA, cognition was assessed via the MOCA (version 8.1). Pt earned an overall score of 22/30, indicative of at least mild cognitive deficits per parameters of this assessment. Pt demonstrated reductions in visuospatial/executive skills,
verbal fluency, delayed recall, and orientation (which pt reported was due to being in hospital). Reviewed results of assessment with pt. Pt felt as though she was at her cognitive baseline and declined further speech therapy intervention. Given
high level of independence COMPENSATION CONSULTANT (managing multiple properties, finances, medications, etc.), discussed results with OT, who plans to complete further assessment with [facility]. Given pt report of baseline cognitive skills and declination of further FELT PULLER
services, FELT PULLER to s/o at this time.
[2025-06-13 11:39] VITALS: BP 112/81; PULSE 100; O2SAT 93
[2025-06-13 11:52] VITALS: BP 125/78
--- NOTE | 2025-06-13 13:32 | PTCARENOTE ---
06/13/2025 DIABETES EDUCATION CONSULTATION
Met with patient for DM education. She is inpatient with a stroke, has an A1c of 6.5%. She states she was prediabetic for years. We reviewed the complications of diabetes and causes of hyperglycemia. She has celiac disease, I provided education
to follow up with PCP to continue checking A1c and there is a correlation with T1D and celiac disease. Provided her with diabetes education brochure, she will follow up with office if she has questions or needs arise.
--- NOTE | 2025-06-13 16:43 | CM ---
Case discussed with PT who advised that patient is appropriate and agreeable to admission to [facility]. Referral sent to [facility] today at 2:08PM.
Plan: CM to follow up with [facility] for acceptance on Monday.
--- NOTE | 2025-06-13 17:53 | CON.MD ---
Consultation - Medical
-
Chief Complaint:�Stroke
�
History of Present Illness:�74-year-old right-handed female with PMH (as below) presented to [facility] on 06/11/2025 with left ankle and calf cramping with a fall x 3 and left handed numbness. CTA of the head and neck with no evidence of
hemodynamically significant stenosis.
MRI of the brain 06/12/2025: with a focal acute area of acute to subacute infarction involving the posterior aspect of the right lentiform nucleus, with contiguous extension superiorly and posteriorly to involve the reilly radiata of the right
parietal lobe. This region of acute to subacute infarction may also involve the posterior limb of the right internal capsule.
Seen by neurology and started on aspirin and Plavix for 21 days (through 07/01/2025) followed by aspirin indefinitely. Echocardiogram gram on 06/12/2025 with pulmonary hypertension and pulmonology was consulted for further evaluation of asthma and
pulmonary hypertension. Has a pulmonary hypertension with suspicion for sleep disordered breathing with an outpatient evaluation planned. Continues to have left upper lower extremity ataxia in the upper and lower extremities.
�
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
Procedure History:�Hysterectomy 1986, appendectomy 1959, lysis of adhesions 1996, left wrist fracture repair 2005
Family History:�None pertinent
�
Social History:�
Functional Level Premorbidly:�Independent with all activities�
Functional Level Currently:�Min assist bed mobility, mod assist transfers, min assist lower extremity self-care. Mod assist toilet transfer. Min assist bed mobility.
�
Tobacco:�Former smoker 1 pack a day for 8 years quit at age 25
Alcohol:�Daily whiskey and water approximately 2 ounces of whiskey at night
Drug use:�Denies�
�
Lives with:�Rosita Delgado has a history of brain injury and adopted son
24-hour assistance available:� is home
Number of floors:�1
# steps to enter:�0
Driving:�Yes
Occupation:�Retired, manages retail properties
�
�
Allergies:�
Allergy/AdvReac Type Severity Reaction Status Date / Time
azithromycin Allergy Tongue Verified 12/18/18 22:59
Swelling
Cephalosporins Allergy Swelling Unverified 12/18/18 22:59
gluten Allergy Unknown Verified 12/18/18 22:59
penicillin V Allergy Swelling Unverified 12/18/18 22:59
Penicillins Allergy Swelling Unverified 12/18/18 22:59
�
Review of Systems:�
Constitutional: (x) abNormal _fatigue
Eye: (x) Normal _
Ear/Nose/Throat: (x) Normal _
Respiratory: (x) Normal _
Cardiovascular: (x) Normal _
Gastrointestinal: (x) Normal _
Genitourinary: (x) Normal _
Musculoskeletal: (x) Normal _
Integumentary: (x) Normal _
Neurologic: (x) abNormal _stroke with left-sided numbness and difficulty with control. Denies any swallowing or vision changes.
Psychiatric: (x) Normal _
Endocrine: (x) Normal _
Hematologic/Lymphatic: (x) Normal _
Allergic/Immunologic: (x) Normal _
�
Medications:�
Active Current Visit Medication List
Category Date Time Status
Acetaminophen [Tylenol] Med 06/11/25 13:00 Active
650 mg PO Q4HPRN PRN
Albuterol [ProAIR HFA INHALER] Med 06/11/25 14:26 Active
2 puff INH R Q4HPRN PRN shortness of breath
Alprazolam [Xanax] Med 06/11/25 14:26 Active
0.125 mg PO HSPRN PRN anxiety
Aspirin Low Dose EC [Aspir Low (Enteric Coated)] Med 06/12/25 08:00 Active
81 mg PO DAILY
Atorvastatin [Lipitor] Med 06/11/25 18:00 Active
40 mg PO QPM
Budesonide/Formoterol 160/4.5 [Symbicort 160/4.5 Mcg Med 06/11/25 20:00 Active
Inhaler]
2 puff INH R BID
Clopidogrel Bisulfate [Plavix] Med 06/12/25 08:00 Active
75 mg PO DAILY
Cyanocobalamin [Vitamin B-12] Med 06/12/25 15:30 Active
1,000 mcg PO DAILY
Metoprolol Xl [Toprol Xl] Med 06/12/25 18:00 Active
25 mg PO QPM
Spironolactone [Aldactone] Med 06/12/25 18:00 Active
25 mg PO BID@0800,1800
Thiamine HCl [Vitamin B1] Med 06/14/25 20:00 Active
100 mg PO BID
Thiamine Injection Med 06/11/25 20:00 Active
200 mg IV Q12
diazePAM [Valium Injection] Med 06/12/25 09:05 Active
5 mg IV ONCE PRN PRN
�
Vitals:�
Temp Pulse Resp BP Pulse Ox
98.2 F 90 16 138/76 93
06/13/25 08:10 06/13/25 18:15 06/13/25 11:52 06/13/25 18:15 06/13/25 11:52
Height 5 ft 5 in
Actual Weight 81.737 kg
Body Mass Index (BMI) 30.0
�
Physical Exam:�
General Appearance/Observation: Well-developed, well-nourished female in no apparent distress.�
Mood/Affect: Appropriate�
�
Integumentary/Operative Site:�No skin lesions noted during course of exam
Eyes: Conjunctiva/Lids: normal��� Pupils: pupils equal round and reactive to light and Accommodation
Ears/Nose/Throat: oral mucosa moist, throat clear.������������ Lips/Teeth/Gums: normal
Neck: Mild bilateral trapezius muscle spasm or tenderness�
Cardiovascular: Heart: regular, no murmur�
Pulses: dorsalis pedis 2+ bilaterally�
Respiratory: Respiratory Effort/Chest Expansion: normal������ Auscultation: Clear to auscultation bilaterally
Gastrointestinal: abdomen not tender, no distension, normal abdominal bowel sounds
Genitourinary: No Lomeli�
Extremities:�Edema: None�Cyanosis: None�Trophic�changes: None
�
Neurology Exam:
Orientation: Alert, Oriented to self, Time, Place�
Memory: Intact for recent medical concerns
Repetition: Intact
Comprehension: Intact
Two step command: Intact
Naming: Intact
Cranial Nerves:
�� CNII:�Pupillary light reflex: Intact���Visual Field: Intact
�� CN III, IV, : Extraocular muscles: Intact�
�� CN V:�Facial Sensation�at�Forehead: Intact,�Maxilla: Intact,�Mandible: Intact
�� CN VII:�Facial movement: Symmetric
�� CN VIII:�Hearing: Normal
�� CN IX/X:�Speech & swallow: Normal,�Position of Uvula: Midline
�� CN XI:�Shoulder shrug: Symmetric
�� CN XII:�Tongue protrusion: Midline
Sensory:
�� Light touch: Intact in right upper and lower extremities, impaired left upper and lower extremities
�
Reflexes:
�� Biceps: 2+ bilaterally
�� Brachioradialis: 2+ bilaterally
�� Triceps: 2+ bilaterally
�� Patellar: 2+ bilaterally
�� Achilles: 2+ bilaterally
�� Babinski: Down going bilaterally
�� Clonus: None
�� Cory: Negative bilaterally�
Cerebellar: Dysmetria/Ataxia: None�on the right, present on the left
Musculoskeletal:Motor: (Manual muscle scale 0-5)�
Muscle SA EF WE EE FF FA HF KE DF EHL PF
Right� 5 5 5 5 5 4 4+ 5 5 5 5
Left 4 4 4 4 4 4 4 4 4 4 4
�
Tone: Normal in all extremities�
Range of Motion: Passively within normal limits in all extremities�
�
Lab Results
Laboratory Data
06/12/25 05:30
06/12/25 05:30
Total Bilirubin 1.1 mg/dl (0.2-1.3) 06/12/25 05:30
Direct Bilirubin 0.3 mg/dl (0.0-0.4) 06/11/25 21:06
AST 17 U/L (14-36) 06/12/25 05:30
ALT 18 U/L (0-35) 06/12/25 05:30
Alkaline Phosphatase 97 U/L (38-126) 06/12/25 05:30
Total Protein 6.9 g/dl (6.3-8.2) 06/12/25 05:30
Albumin 3.9 g/dl (3.5-5.0) 06/12/25 05:30
�
Diagnostic Results:�as per HPI�
�
Assessment
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
right parietal lobe, posterior limb of the right internal capsule with ADL and ambulatory dysfunction.
Plan�
PM&R�PT/OT to increase independence with ADLs, improve balance, coordination, endurance, strength, mobility, community reintegration, decreased burden of care on others and family education.�
�
CVA: Secondary prophylaxis with aspirin and Plavix for 21 days (through 07/01/2025) followed by aspirin indefinitely, statin, and blood pressure control (SBP less than 180 and diastolic less than 100 to participate with therapy for ischemic stroke).
Continue to monitor neurologic status.�
Left nondominant hemiparesis: High risk for falls and sliding out of chair/bed. Safety reinforced.�
Left sided ataxia: increased risk for falls.�
HTN: metoprolol 25 mg at night, spironolactone 25 mg BID, monitor closely�
HLD: Statin�
Psych:Monitor mood, Xanax as needed.�
Skin: monitor for pressure sores/rashes/lesions.�
Pain: acetaminophen as needed.�
Bowel: Colace and Senna, PRN bisacodyl.�
Bladder: Time void, PVRs, PRN straight cath.�
DVT Prophylaxis: mechanical, suggest chemoprophylaxis.
Pulmonary: Incentive spirometry�
Obesity: Continue to elder counselor patient about diet adjustments to control obesity. Body habitus and increased force to move body and extremities causes further difficulty with functional tasks.�
Safety: Continue to reinforce assistance with all transfers.�
Code Status:� Full code
Dispo�(date/plan/equipment needs): Home with family care.� Social history reviewed.�
Functional and Medical Goals:�Modified Independent with ADL�s, ambulation, transfers�
Discharge Destination:�Acute inpatient Rehabilitation�
�
Thank you for allowing me to care for your patient. Please contact me with any questions or concerns.
Consultation
-
Date/Time Consultation Requested: 06/13/2025
Date/Time Consultation Performed: 06/13/2025
Requesting Provider: Dr. Jillian Shankar
Performing Provider: Dr. Loki Rod
Reason for Consultation: Stroke
[2025-06-13] MEDS: TOPROL XL 25 MG PO (18:15)
[2025-06-13] MEDS: LIPITOR 40 MG PO (18:15)
[2025-06-13 19:00] VITALS: BP 134/78
[2025-06-13 23:00] VITALS: BP 128/73
[2025-06-14 03:00] VITALS: BP 118/80
[2025-06-14 03:21] VITALS: BMI 29.4
[2025-06-14] MEDS: SYMBICORT 160/4.5 MCG INHALER 2 PUFF INH ×2 (07:55→18:02)
[2025-06-14 08:02] VITALS: BP 114/68
--- NOTE | 2025-06-14 09:00 | W.PN.HOSP.TC ---
Today's Communication/Plan
-
dc planning
Assessment / Plan
Assessment / Plan
Physical Exam
General: No Apparent Distress, Comfortable and Conversant; No Pain, Fever or Chills
HEENT: Normocephalic, Anicteric, Moist mucous membranes, Atraumatic,
Respiratory: Clear; No Wheezes, Rales or Rhonchi
Cardiac: S1/S2
GI: Soft, Non Tender, Non Distended, Normal Bowel Sounds
Musculoskeletal: No Clubbing, No Cyanosis and No Edema
Skin: Warm, Dry and Rash
Neuro: AO x 3, No Motor Deficits, Nonfocal/grossly intact. Gait: unsteady at times. No Slurred Speech, Facial Droop or Tremors
Psych:calm
#Acute to subacute infarction involving the posterior aspect of the right lentiform nucleus, with contiguous extension superiorly and posteriorly to involve the reilly radiata of the right parietal lobe. This region of acute to subacute infarction
may also involve the posterior limb of the right internal capsule. LUE/LLE leg cramp numbness with Fall concern CVA/TIA
She reports improvement but gait is still not normal, mild left weakness
- Neurochecks unchanged
- Lipid panel showed total cholesterol 181, LDL 107, HDL 59. HgbA1c 6.5
Normal TSH. Vitamin B12 and folate levels are pending
-Continue dual antiplatelet therapy for now with aspirin, Plavix
consulted Dr Rod
- PT /OT/Speech/ case management
#Alcohol use
Patient drinks 2 whiskey and water approximately 2 ounces daily drink
No signs of DT
counseled to avoid regular alcohol intake, she verbalized understanding
Lucid and pleasant
No tremor.
#Anxiety/depression
-Continue Xanax 0.125 mg at bedtime as needed last dose was yesterday 06/10/2025
#HTN�benign
Resumed spironolactone 25 mg twice daily, metoprolol XL 25 mg at bedtime after permissive hypertension.
#Asthma moderate persistent�no wheezes.
will do chest x ray
consult pulmonary, elevated pulmonary artery pressure
Continue Symbicort twice daily, albuterol rescue inhaler as needed
#Celiac disease
- Gluten-free diet
DVT prophylaxis
SCDs
Full code
Total time spent to see the patient, examine the patient, review data and lab result, discuss treatment plan with patient, nursing staff around 55 minutes
Anticipated Discharge: Within 24 hours
Subjective/Interval History
-
Date of Service: June 14, 2025
No chest pain
No sob
No fevers
Objective Data
-
Vital Signs:
Vital Signs
Temp Pulse Resp BP Pulse Ox
97.6 F 78 16 114/68 95
06/14/25 08:02 06/14/25 08:02 06/14/25 08:02 06/14/25 08:02 06/14/25 08:02
I&O
06/13/25 06/14/25 06/15/25
06:59 06:59 06:59
Intake Total 600 / 600 720 / 720 960 / 960
Balance 600 / 600 720 / 720 960 / 960
[2025-06-14] MEDS: ALDACTONE 25 MG PO ×2 (09:18→17:33)
[2025-06-14] MEDS: PLAVIX 75 MG PO (09:18)
[2025-06-14] MEDS: VITAMIN B-12 1000 MCG PO (09:19)
[2025-06-14] MEDS: THIAMINE INJECTION 200 MG IV (09:20)
[2025-06-14] MEDS: ASPIR LOW (ENTERIC COATED) 81 MG PO (09:20)
--- NOTE | 2025-06-14 10:44 | VATNOTE ---
Left antecubital fossa phlebitic area reassessed. Phlebitic area measures [id number]. Firm and tender to touch. No palpable cord. Client states area feels'a little better'. Left arm elevated on pillow and warm soak applied. K-pad requested from SPD.
Primary care RN made aware. VAT team to follow.
[2025-06-14 11:09] VITALS: BP 115/67
[2025-06-14 14:30] VITALS: BP 129/80; BP 131/85; PULSE 89; O2SAT 93
[2025-06-14 15:12] VITALS: BP 129/80
[2025-06-14] MEDS: TOPROL XL 25 MG PO (17:33)
[2025-06-14] MEDS: LIPITOR 40 MG PO (17:34)
[2025-06-14] MEDS: TYLENOL 500 MG PO (17:56)
[2025-06-14] MEDS: LOW STRENGTH ASPIRIN 81 MG PO (17:56)
--- NOTE | 2025-06-14 18:30 | PTCARENOTE ---
Pt c/o chest pain with pain in upper back and L arm. L arm red around previous IV site location. ECG obtained. MD notified . VSS, O2 sat 91% RA 2L O2 applied to pt- now 95%. Photo of L arm sent to MD via TT. Now alternating heat and ice. One time
dose of tylenol and aspirin order obtained and administered to the pt. Pt eating dinner at this time, call snow is within reach. POC ongoing.
[2025-06-14] MEDS: VITAMIN B1 100 MG PO (21:21)
[2025-06-14 23:30] VITALS: BP 125/68
[2025-06-15 07:00] VITALS: BP 129/72
[2025-06-15] MEDS: SYMBICORT 160/4.5 MCG INHALER 2 PUFF INH ×2 (07:40→19:33)
[2025-06-15] MEDS: ASPIR LOW (ENTERIC COATED) 81 MG PO (08:58)
[2025-06-15] MEDS: VITAMIN B1 100 MG PO ×2 (08:58→20:37)
[2025-06-15] MEDS: VITAMIN B-12 1000 MCG PO (08:58)
[2025-06-15] MEDS: ALDACTONE 25 MG PO ×2 (08:58→18:03)
[2025-06-15] MEDS: PLAVIX 75 MG PO (08:58)
--- NOTE | 2025-06-15 09:20 | W.PN.HOSP.TC ---
Today's Communication/Plan
-
PT/OT
Assessment / Plan
Assessment / Plan
Physical Exam
General: No Apparent Distress, Comfortable and Conversant; No Pain, Fever or Chills
HEENT: Normocephalic, Anicteric, Moist mucous membranes, Atraumatic,
Respiratory: Clear; No Wheezes, Rales or Rhonchi
Cardiac: S1/S2
GI: Soft, Non Tender, Non Distended, Normal Bowel Sounds
Musculoskeletal: No Clubbing, No Cyanosis and No Edema
Skin: Warm, Dry and Rash
Neuro: AO x 3, No Motor Deficits, Nonfocal/grossly intact. Gait: unsteady at times. No Slurred Speech, Facial Droop or Tremors
Psych:calm
#Acute to subacute infarction involving the posterior aspect of the right lentiform nucleus, with contiguous extension superiorly and posteriorly to involve the reilly radiata of the right parietal lobe. This region of acute to subacute infarction
may also involve the posterior limb of the right internal capsule. LUE/LLE leg cramp numbness with Fall concern CVA/TIA
She reports improvement but gait is still not normal, mild left weakness
- Neurochecks unchanged
- Lipid panel showed total cholesterol 181, LDL 107, HDL 59. HgbA1c 6.5
Normal TSH. Vitamin B12 and folate levels are pending
-Continue dual antiplatelet therapy for now with aspirin, Plavix
Per neurology: continue with aspirin and Plavix for 21 days and after 21 days the plan is to stop Plavix and continue with aspirin indefinitely. c/w on atorvastatin [address] Rod
- PT /OT/Speech/ case management
#Alcohol use
Patient drinks 2 whiskey and water approximately 2 ounces daily drink
No signs of DT
counseled to avoid regular alcohol intake, she verbalized understanding
Lucid and pleasant
No tremor.
# Left arm bruising related to V cannula, avoid IV access in the same area, use ice pack if needed.
No signs of phlebitis but definitely tender swelling with bruising in cubital area.
#Anxiety/depression
-Continue Xanax 0.125 mg at bedtime as needed
#HTN�benign
Resumed spironolactone 25 mg twice daily, metoprolol XL 25 mg at bedtime after permissive hypertension.
#Asthma moderate persistent�no wheezes.
will do chest x ray
consult pulmonary, elevated pulmonary artery pressure
Continue Symbicort twice daily, albuterol rescue inhaler as needed
#Celiac disease
- Gluten-free diet
DVT prophylaxis
SCDs
Full code
Total time spent to see the patient, examine the patient, review data and lab result, discuss treatment plan with patient, nursing staff around 55 minutes
Anticipated Discharge: Within 24 hours
Subjective/Interval History
-
Date of Service: June 15, 2025
No chest pain
No sob
Objective Data
-
Vital Signs:
Vital Signs
Temp Pulse Resp BP Pulse Ox
98.1 F 79 16 129/72 91
06/15/25 07:00 06/15/25 08:58 06/15/25 07:45 06/15/25 08:58 06/15/25 07:45
I&O
06/14/25 06/15/25 06/16/25
06:59 06:59 06:59
Intake Total 720 / 720 2400 / 2400
Balance 720 / 720 2400 / 2400
[2025-06-15 13:37] VITALS: BP 133/77; PULSE 88; O2SAT 92
[2025-06-15 15:00] VITALS: BP 110/77
[2025-06-15] MEDS: LIPITOR 40 MG PO (17:58)
[2025-06-15] MEDS: TOPROL XL 25 MG PO (18:04)
[2025-06-15] MEDS: TYLENOL 650 MG PO (20:37)
[2025-06-15 22:55] VITALS: BP 127/69
[2025-06-16 03:09] VITALS: BMI 29.4
[2025-06-16 07:00] VITALS: BP 132/82
[2025-06-16] MEDS: SYMBICORT 160/4.5 MCG INHALER 2 PUFF INH (07:36)
[2025-06-16] MEDS: ASPIR LOW (ENTERIC COATED) 81 MG PO (07:47)
[2025-06-16] MEDS: PLAVIX 75 MG PO (07:47)
[2025-06-16] MEDS: VITAMIN B-12 1000 MCG PO (07:47)
[2025-06-16] MEDS: ALDACTONE 25 MG PO (07:47)
[2025-06-16] MEDS: VITAMIN B1 100 MG PO (07:47)
[2025-06-16] MEDS: TYLENOL 650 MG PO (10:40)
--- NOTE | 2025-06-16 11:23 | CM ---
Addendum entered by Elli Galvan 06/16/25 12:39:
Pt seen by OT today. Plan for transfer to [facility].
Original Note:
Pt has been accepted for transfer to [facility]. OT notes need to be updated since last OT note is from 06/13/2025. Discussed with OT who will see Stephanie today.
Plan: Transfer to [facility] at today after seen by OT.
[facility] Report: [phone]
[facility]
--- NOTE | 2025-06-16 11:45 | W.PN.HOSP.TC ---
Today's Communication/Plan
-
dc to [facility]
Assessment / Plan
Assessment / Plan
Physical Exam
General: No Apparent Distress, Comfortable and Conversant; No Pain, Fever or Chills
HEENT: Normocephalic, Anicteric, Moist mucous membranes, Atraumatic,
Respiratory: Clear; No Wheezes, Rales or Rhonchi
Cardiac: S1/S2
GI: Soft, Non Tender, Non Distended, Normal Bowel Sounds
Musculoskeletal: No Clubbing, No Cyanosis and No Edema
Skin: Warm, Dry and Rash
Neuro: AO x 3, No Motor Deficits, Nonfocal/grossly intact. Gait: unsteady at times. No Slurred Speech, Facial Droop or Tremors
Psych:calm
Assessment:
Acute CVA
- MRI: focal area of acute to subacute infarction involving the posterior aspect of the right lentiform nucleus, with contiguous extension superiorly and posteriorly to involve the reilly radiata of the right parietal lobe. This region of acute to
subacute infarction may also involve the posterior limb of the right internal capsule.
- Neurology was following
- DAPT x 3 weeks, then ASA alone
- continue Statin
- DC to [facility]
Alcohol use
- Patient drinks 2 whiskey and water approximately 2 ounces daily drink
- No signs of DT
- counseled to avoid regular alcohol intake, she verbalized understanding
- Lucid and pleasant. No tremor.
Left arm bruising related to IV cannula, avoid IV access in the same area, use ice pack if needed.
- No signs of phlebitis but definitely tender swelling with bruising in cubital area.
Anxiety/depression
- continue Xanax 0.125 mg at bedtime as needed
Essential HTN
- continue Aldactone/Metoprolol
Asthma moderate persistent�no wheezes.
- CXR negative
- OP Pulm/Sleep study evaluation
- continue Symbicort twice daily, albuterol rescue inhaler as needed
Celiac disease
- Gluten-free diet
DVT prophylaxis: SCDs
Code: Full
More than 30 minutes spent in discharge including
Final examination of the patient
Summarizing hospital stay
Instructions for continuing care to all relevant caregivers
Preparation of discharge records, prescriptions, and referral forms
Total time spent (in minutes): 41
Anticipated Discharge: Today
Subjective/Interval History
-
Date of Service: June 16, 2025
resting comfortably, no new complaints
Objective Data
-
Vital Signs:
Vital Signs
Temp Pulse Resp BP Pulse Ox
97.9 F 78 14 121/75 94
06/16/25 07:00 06/16/25 07:47 06/16/25 07:43 06/16/25 07:47 06/16/25 09:04
I&O
06/15/25 06/16/25 06/17/25
06:59 06:59 06:59
Intake Total 2400 / 2400 960 / 960
Balance 2400 / 2400 960 / 960
Data Reviewed
-
Total Time Spent with Patient (in minutes): 41
Labs: Labs Reviewed by me
--- NOTE | 2025-06-16 12:01 | W.DCSUMMARY ---
Discharge Summary
Discharge Data
Date of Admission: 06/12/25
Date of Discharge: 06/16/25
-
Pending Results: No
Hospital Course
74 y/o F, presented on 06/11/25 with L arm/leg numbness and weakness. Her stroke workup revealed acute to subacute stroke on MRI (R lentiform nucleus, R Internal capsule, R parietal lobe). She was evaluated by Neurology who recommended ASA/Plavix x 3
weeks then ASA alone. Also started on Statin. Patient evaluated by PT/OT and recommended for acute rehab placement which was achieved 06/16/25.
Of note, also evaluated by pulmonary medicine and recommended sleep study outpatient.
Discharge Plan
-
Patient Disposition: Acute Rehab Facility
Discharge Diagnosis/Procedures: Acute to subacute infarction involving the posterior aspect of the right lentiform nucleus, with contiguous extension superiorly, posteriorly to involve the reilly radiata of the right parietal lobe, posterior limb of
the right internal capsule.
Condition: Fair
Diet: Low Cholesterol and Other diet
Additional Diets: gluten free
Activity: As tolerated
Other Services: PT, OT and ST
Referrals:
Maynor Glasgow MD [Active, Pulmonary Medicine] - in three to four weeks
Referral Note: Asthma- CVA/SUDARSHAN eval.
PFT/6MWT
May see LEASE ANALYST first.
Kenny Loya MD [Family Provider, Family Practice]
Prescriptions:
New
aspirin 81 mg Tablet,Delayed Release (Dr/Ec)
81 mg PO DAILY Qty: 100 0RF
clopidogrel 75 mg Tablet
75 mg PO DAILY Qty: 17 0RF
Rx Instructions:
last dose 07/02
thiamine mononitrate (vit B1) 100 mg Tablet
100 mg PO BID Qty: 100 0RF
atorvastatin 40 mg Tablet
40 mg PO QPM Qty: 30 0RF
cyanocobalamin (vitamin B-12) [Vitamin B-12] 500 mcg Tablet
1,000 mcg PO DAILY Qty: 100 0RF
Continued
spironolactone 25 mg tablet
25 mg PO BID
alprazolam 0.25 mg tablet
0.125 mg PO HSPRN PRN (Reason: anxiety)
metoprolol succinate 25 mg tablet extended release 24 hr
25 mg PO QPM
albuterol sulfate [Ventolin HFA] 90 mcg/actuation HFA aerosol inhaler
2 puff INHALATION Q4HPRN PRN (Reason: shortness of breath)
budesonide-formoterol [Symbicort] 160-4.5 mcg/actuation HFA aerosol inhaler
2 puff INHALATION BID
Discharge Orders:
Discharge Patient (As Directed); Ordered 06/16/25
Ordered By: Pietro Sutherland
Discharge Date and Time
Print Language: [place]
[2025-06-16 12:10] VITALS: BP 123/81; PULSE 78; O2SAT 90
[2025-06-16 12:15] VITALS: BP 123/81; PULSE 78; O2SAT 90
[2025-06-16 14:16] VITALS: BP 123/71
== END 2025-06-16 14:51 | DRG 65 ==
LOC: 3 WEST ACU 13:22
PROVIDERS: Clinical Nurse Specialist Family Health; ADMITTING PHYSICIAN Internal Medicine; ATTENDING PHYSICIAN Internal Medicine; CONSULT PHYSICIAN Internal Medicine Critical Care Medicine; CONSULT PHYSICIAN Physical Medicine & Rehabilitation; CONSULT PHYSICIAN Psychiatry & Neurology Neurology; EMERGENCY PHYSICIAN Emergency Medicine; FAMILY PHYSICIAN Family Medicine
DX: I63.9 Cerebral infarction, unspecified (principal); E87.1 Hypo-osmolality and hyponatremia; G81.94 Hemiplegia, unspecified affecting left nondominant side; W19.XXXA Unspecified fall, initial encounter; E27.9 Disorder of adrenal gland, unspecified; I10 Essential (primary) hypertension; K90.0 Celiac disease; F32.A Depression, unspecified; Z87.891 Personal history of nicotine dependence; Z88.1 Allergy status to other antibiotic agents; Z88.0 Allergy status to penicillin; J45.40 Moderate persistent asthma, uncomplicated; I27.20 Pulmonary hypertension, unspecified; R09.02 Hypoxemia; G47.00 Insomnia, unspecified; J31.0 Chronic rhinitis; Z79.899 Other long term (current) drug therapy; E26.9 Hyperaldosteronism, unspecified; E66.9 Obesity, unspecified; Z68.29 Body mass index [BMI] 29.0-29.9, adult; E78.5 Hyperlipidemia, unspecified; F41.9 Anxiety disorder, unspecified; M81.0 Age-related osteoporosis without current pathological fracture; R29.703 NIHSS score 3; R73.03 Prediabetes; Z79.02 Long term (current) use of antithrombotics/antiplatelets; Z79.51 Long term (current) use of inhaled steroids; Z90.711 Acquired absence of uterus with remaining cervical stump; Z98.42 Cataract extraction status, left eye
CPT/HCPCS: 0042T; 70450; 70496; 70498; 70551; 71045; 80048; 80053; 80061; 80076; 82607; 82728; 82746; 82962; 83036; 83735; 84100; 84132; 84443; 85025; 92523; 92610; 93005; 93306; 94640; 97112; 97116; 97163; 97167; 97530; 97535; 99285; Q9967